=== PATIENT | female | born 1990 | race African-American/Black ===

== ENCOUNTER 2019-04-22 14:52 | Emergency (ER) | payer SELFPAY ==
[~2019-04-22] VITALS: Ht 154.9 cm; Wt 53.5 kg
--- NOTE | 2019-04-22 15:22 | NUR ---
C/O MOUTH NUMBNESS, BOTH HAND TINGLING SENSATION STARTED 40 MINS AGO. PT STATES SHE'S HAVING FREQUENT URINATION. DENIES INJURY PRIOR TO SYMPTOMS. ALSO STATES EXPERIENCING SOME SOB. AOX4, AMBULATORY, VSS, RR EVEN AND UNLABORED. NO ACUTE DISTRESS NOTED. BOYFRIEND AT BEDSIDE. READY FOR EVAL.
[2019-04-22 15:51] LABS: BILIRUBIN,URINE Negative (NEGATIVE); BLOOD, URINE Moderate Ery/uL (NEGATIVE); COLOR,URINE Light yellow (YELLOW); KETONES,URINE Negative (NEGATIVE); LEUKOCYTE ESTERASE ,URINE Negative (NEGATIVE); NITRITE, URINE Negative (NEGATIVE); PH,URINE 6.5 (5.0-8.0); PROTEIN,URINE Negative (NEGATIVE); UGLUCOSE Negative (NEGATIVE); UROBILINOGEN,URINE 0.2 EU/dL (0.2)
[2019-04-22 15:52] LABS: APPEARANCE,URINE HAZY (CLEAR)
[2019-04-22 15:59] LABS: BACTERIA,URINE Few /HPF (None Seen); SQUAMOUS EPITHELIAL CELL,UR Few /HPF (None Seen); WBC,URINE 0-2 /HPF (0-3)
[2019-04-22] MEDS ORDERED: LORAZEPAM 1 MG TABLET PO ONE (16:00)
[2019-04-22 16:01] LABS: BASOPHILS # (AUTO) 0.1 /CMM (0.0-0.2); EOSINOPHILS % (AUTO) 1.6 % (0.0-6.0); HEMATOCRIT 35 % (33-45); HEMOGLOBIN 11.4 g/dL (11.5-14.8); LYMPHOCYTES # (AUTO) 1.7 /CMM (0.8-4.8); LYMPHOCYTES % (AUTO) 33.4 % (20.0-44.0); MEAN CORPUSCULAR HGB CONC 33 g/dl (31.0-36.0); MEAN CORPUSCULAR VOLUME 83 fL (82-100); MONOCYTES # (AUTO) 0.3 /CMM (0.1-1.30); MONOCYTES % (AUTO) 6.3 % (2.0-12.0); NEUTROPHILS # (AUTO) 2.9 /CMM (1.8-8.9); NEUTROPHILS % (AUTO) 57.7 % (43.0-81.0); PLATELET COUNT (AUTO) 243 /CMM (150-450)
[2019-04-22] MEDS ORDERED: LORAZEPAM 1 MG TABLET ONE (16:05)
[2019-04-22 16:07] LABS: CALCIUM, SERUM 8.8 mg/dL (8.5-10.1); POTASSIUM 3.3 mmol/L (3.5-5.1)
--- NOTE | 2019-04-22 16:47 | NUR ---
PT AMBULATED TO RADIOLOGY
--- NOTE | 2019-04-22 18:10 | NUR ---
Patient discharged to home in stable condition. Written and verbal after care instructions given. Patient verbalizes understanding of instruction.
[2019-04-22 18:12] VITALS: BP 121/86
== END 2019-04-22 18:13 | disposition home or self-care (01) ==
LOC: ER 14:52
DX: F41.9 Anxiety disorder, unspecified (principal)
CPT/HCPCS: 36415; 71045-TC; 80048-TC; 81000-TC; 84703-TC; 85025-TC; 87086-TC

== ENCOUNTER 2019-04-23 22:27 | Emergency (ER) | payer SELFPAY ==
[~2019-04-23] VITALS: Ht 154.9 cm; Wt 53.5 kg
--- NOTE | 2019-04-23 23:00 | NUR ---
BIBSELF. TO ER BED 3. NO RESP DISTRESS, BREATHING EVEN AND UNLABORED. AMBULATORY. C/O FEELING ANXIOUS. PT REPORTS THAT SOMETHING GOING ON IN HER HEAD. REPORTS SOB BUT NONE UPON ASSESSMENT. PT IS ANXIOUS AT TIME OF ASSESSMENT. PT WAS HERE AT THE ER. MD AT BEDSIDE. WILL MONITOR PT
--- NOTE | 2019-04-23 23:56 | NUR ---
URINE SENT TO LAB
--- NOTE | 2019-04-24 00:51 | NUR ---
Patient discharged to home in stable condition. Written and verbal after care instructions given. Patient verbalizes understanding of instruction. Pt ambulatory with a steady gait
[2019-04-24 00:53] VITALS: BP 117/79
== END 2019-04-24 00:54 | disposition home or self-care (01) ==
LOC: ER 22:30
DX: F41.9 Anxiety disorder, unspecified (principal); R51 Headache
CPT/HCPCS: 70450-TC; 84703-TC